=== PATIENT | female | born 1960 | race Hispanic/Latino ===

== ENCOUNTER 2017-06-22 04:00 | Emergency (ER) | payer BC, OTHER ==
[~2017-06-22 04:00] MED LIST: HYDR-3421 PO; METH4TAB16 PO; METO25TA6 PO; OMEP20TA25 PO
[2017-06-22 04:46] LABS: RAPID GROUP A STREP NEGATIVE (NEGATIVE)
[2017-06-22] MEDS ORDERED: ACETAMINOPHEN EXTRA STRENGTH 500 MG TABLET ONE (04:55)
[2017-06-22] MEDS ORDERED: IPRATROPIUM/ALBUTEROL SULFATE 3 ML SOLUTION IH ONE (05:11)
== END 2017-06-22 05:56 | disposition home or self-care (01) ==
LOC: EDH 04:00
DX: J18.9 Pneumonia, unspecified organism (principal); I10 Essential (primary) hypertension; K21.9 Gastro-esophageal reflux disease without esophagitis; Z88.8 Allergy status to other drugs, medicaments and biological substances; Z98.890 Other specified postprocedural states
CPT/HCPCS: 71046; 87804; 87880; 94640

== ENCOUNTER 2018-02-10 06:26 | Day surgery (SDC) | payer BC ==
[2018-02-07 14:50] VITALS: BP 119/60
[2018-02-10] VITALS (44 sets, daily range): BP systolic 89–139; BP diastolic 46–83
[~2018-02-10] VITALS: Ht 152.4 cm; Wt 90.1 kg
[2018-02-10] MEDS: CEFAZOLIN SODIUM 1 GM VIAL IVP SCH ×2 (06:00→09:09)
[~2018-02-10 06:26] MED LIST changes: +CHLO25TA3 PO; -HYDR-3421 PO; +LISI40TA4 PO; +LORA0.5T2 PO; +METF-444 PO; -METH4TAB16 PO; +METO-391 PO; -METO25TA6 PO; -OMEP20TA25 PO; +OMEP40CA37 PO; +PHARMACY COMMUNICATION MISC SCH; +SERT100T12 PO; +TRAM50TA4 PO
[2018-02-10] MEDS ORDERED: SODIUM CHLORIDE 0.9% 1000ML 1,000 ML IV ONE (06:42)
[2018-02-10] MEDS ORDERED: EPINEPHRINE 1 MG/ML 30ML VIAL IJ ONE (07:44)
[2018-02-10] MEDS ORDERED: MIDAZOLAM HCL 1 MG/ML 2ML VIAL ONE ×2 (08:00→10:08)
[2018-02-10] MEDS ORDERED: PROPOFOL 10 MG/ML 20ML VIAL IV ONE ×2 (08:00→08:30)
[2018-02-10] MEDS ORDERED: ROPIVACAINE 0.5% 5MG/ML 30ML IJ ONE (08:00)
[2018-02-10] MEDS ORDERED: LIDOCAINE PF 2% 5ML ABBOJECT ONE (08:00)
[2018-02-10] MEDS ORDERED: ONDANSETRON HCL 4 MG/2 ML VIAL ONE (08:00)
[2018-02-10] MEDS ORDERED: EPHEDRINE SULFATE 50 MG/ML AMPULE ONE (08:00)
[2018-02-10] MEDS ORDERED: FAMOTIDINE/PF 20 MG/2 ML VIAL IV ONE (08:09)
[2018-02-10] MEDS ORDERED: KETAMINE 50MG/ML SYRINGE 50 MG/ML DISP.SYRIN IV ONE (08:10)
[2018-02-10] MEDS ORDERED: ALBUMIN (HUMAN) 5% 250 ML IV ONE (08:11)
[2018-02-10] MEDS ORDERED: PROMETHAZINE HCL 25 MG/ML 1ML AMPULE IM ONE (08:16)
[2018-02-10] MEDS ORDERED: FENTANYL CITRATE PF 50 MCG/1 ML 2ML VIAL ONE ×2 (08:32→10:11)
[2018-02-10] MEDS ORDERED: NOREPINEPHRINE BITARTRATE 1 MG/1 ML ML IV ONE (08:47)
[2018-02-10] MEDS ORDERED: SUB TO ALBUTEROL 2.5MG/3ML NEBULES PER P&T IH ONE (08:55)
[2018-02-10] MEDS ORDERED: DEXAMETHASONE SOD PHOSPHATE 10MG/ML 1ML VIAL ONE (10:13)
[2018-02-10] MEDS ORDERED: CEFAZOLIN SODIUM 1 GM VIAL ONE (10:55)
[2018-02-10] MEDS ORDERED: HYDROMORPHONE 1 MG/1 ML AMP ONE (11:41)
[2018-02-10] MEDS ORDERED: HYDR-309 PO (11:51)
[2018-02-10] MEDS ORDERED: CEPH500B PO (11:51)
[2018-02-10] MEDS ORDERED: IPRATROPIUM/ALBUTEROL SULFATE 3 ML SOLUTION IH ONE ×3 (12:12→14:16)
== END 2018-02-10 16:37 | disposition home or self-care (01) ==
LOC: DAH 06:26
PROVIDERS: ATTEND Orthopaedic Surgery
DX: S49.91XA Unspecified injury of right shoulder and upper arm, initial encounter (principal); M75.41 Impingement syndrome of right shoulder; W18.30XA Fall on same level, unspecified, initial encounter; Y93.9 Activity, unspecified; Y92.89 Other specified places as the place of occurrence of the external cause; Y99.9 Unspecified external cause status; M75.101 Unspecified rotator cuff tear or rupture of right shoulder, not specified as traumatic; I10 Essential (primary) hypertension; E78.5 Hyperlipidemia, unspecified; Z98.890 Other specified postprocedural states; Z90.710 Acquired absence of both cervix and uterus; Z88.8 Allergy status to other drugs, medicaments and biological substances; E11.9 Type 2 diabetes mellitus without complications; K21.9 Gastro-esophageal reflux disease without esophagitis; Z68.36 Body mass index [BMI] 36.0-36.9, adult; Z79.899 Other long term (current) drug therapy; Z83.3 Family history of diabetes mellitus; Z82.49 Family history of ischemic heart disease and other diseases of the circulatory system; I48.91 Unspecified atrial fibrillation; Z90.49 Acquired absence of other specified parts of digestive tract; Z53.33 Arthroscopic surgical procedure converted to open procedure
CPT/HCPCS: 23412; 29824; 29826; 82948 ×2; 94640 ×3; A4218; A4649 ×5; A4930; A6204; C1713 ×3; C1762 ×2; G0168; J0171; J0690 ×2; J1100; J1170; J2001; J2250 ×2; J2405; J2550; J2704 ×2; J2795; J3010 ×2; J3490 ×4; J7030 ×2; P9045

== ENCOUNTER 2018-02-12 01:58 | Emergency (ER) | payer BC ==
[~2018-02-12 01:58] MED LIST changes: +CEPH500B PO; +HYDR-309 PO; -PHARMACY COMMUNICATION MISC SCH
[2018-02-12] MEDS ORDERED: TRAMADOL HCL 50 MG TABLET ONE (03:48)
[2018-02-12 03:52] LABS: BASOPHILS % (AUTO) 0.3 % (0.0-5.0); EOSINOPHILS % (AUTO) 1.7 % (0.0-8.0); HEMATOCRIT 38.5 % (36-48); LYMPHOCYTES % (AUTO) 27.2 % (21.0-51.0); MEAN CORPUSCULAR HEMOGLOBIN 23.9 pg (27.0-33.0); MEAN CORPUSCULAR HGB CONC 32.1 g/dL (32.0-36.0); MEAN CORPUSCULAR VOLUME 74.7 fL (79-99); MONOCYTES % (AUTO) 6.3 % (3.0-13.0); NEUTROPHILS % (AUTO) 64.5 % (40.0-77.0); NUCLEATED RED BLOOD CELLS 0.1 % (0.0-0.19); PLATELET COUNT (AUTO) 203 K/uL (130-400); RED BLOOD CELL COUNT(AUTO) 5.15 MIL/uL (4.00-5.50); RED CELL DISTRIBUTION WIDTH 15.5 % (11.0-15.5); WHITE BLOOD COUNT (AUTO) 7.5 K/uL (4.8-10.8)
[2018-02-12 04:06] LABS: ALBUMIN 3.3 g/dL (3.5-5.0); BILIRUBIN,TOTAL 0.4 mg/dL (0.2-1.0); CREATININE 0.7 mg/dL (0.5-1.5); TOTAL PROTEIN, SERUM 7.2 g/dL (6.0-8.3)
[2018-02-12 04:14] LABS: POTASSIUM 2.8 mmol/L (3.5-5.1)
[2018-02-12] MEDS ORDERED: POTASSIUM BICARB/CIT AC 25 MEQ TABLET.EFF ONE (04:21)
[2018-02-12 04:23] LABS: MYOGLOBIN 111 ng/mL (10-92); TROPONIN I < 0.04 ng/mL (0.00-0.06)
[2018-02-12 04:25] LABS: CREATINE KINASE, TOTAL 1046 U/L (21-232)
[2018-02-12 04:41] LABS: B-TYPE NATRIURETIC PEPTIDE 124 pg/mL (0-100)
[2018-02-12 05:01] LABS: ERYTHROCYTE SEDIMENTATION RATE 27 MM/HR (0-30)
== END 2018-02-12 05:37 | disposition home or self-care (01) ==
LOC: EDH 01:58
DX: M25.511 Pain in right shoulder (principal); L03.113 Cellulitis of right upper limb; E87.6 Hypokalemia; K21.9 Gastro-esophageal reflux disease without esophagitis; I10 Essential (primary) hypertension; Z88.8 Allergy status to other drugs, medicaments and biological substances; Z90.710 Acquired absence of both cervix and uterus; Z98.890 Other specified postprocedural states
CPT/HCPCS: 36415; 71045; 80053; 82550; 83874; 83880; 84484; 85025; 85651; 86140; 93005